=== PATIENT | male | born 1945 | race Caucasian/White ===

== ENCOUNTER 2019-07-14 06:58 | Day surgery (SDC) | payer OTHER, BC ==
[2019-07-02 10:24] VITALS: BMI 23.0
[2019-07-14] MEDS ORDERED: LIDOCAINE HCL 1%, 10 MG/ML (20ML VIAL) ONE (07:05)
[2019-07-14] MEDS ORDERED: MIDAZOLAM HCL 2 MG/2 ML SINGLE DOSE VIAL ONE (08:23)
[2019-07-14] MEDS ORDERED: PROPOFOL 20 ML ONE (08:23)
[2019-07-14] MEDS ORDERED: LIDOCAINE HCL 2% (50ML VIAL) INF ONE (08:30)
[2019-07-14 09:29] VITALS: BP 122/74; PULSE 60; TEMP 98
--- NOTE | 2019-07-14 10:31 | OP ---
DATE OF OPERATION: 07/14/2019 PREOPERATIVE DIAGNOSIS: Left index trigger finger. POSTOPERATIVE DIAGNOSIS: Left index trigger finger. OPERATIVE PROCEDURE: Left index trigger finger release. SURGEON: Jorge Hubbard MD ANESTHESIA: Local with sedation. COMPLICATIONS: None. ESTIMATED BLOOD LOSS: Minimal. INDICATIONS FOR THE PROCEDURE: The patient is a 74-year-old male with the above finding indicated for operative treatment. Risks, benefits and alternatives were discussed with the patient at length and proper informed consent was obtained. PROCEDURE: After proper identification of the patient and correct operative site, patient was brought to the operating room and placed on the table with bony prominences well-padded. Sedation was given by the anesthesiologist, local anesthesia was given. The left upper extremity was prepped and draped in the usual sterile fashion. A well-padded tourniquet was placed over the sterile prep. Esmarch bandage was used to exsanguinate the left upper extremity. The tourniquet was inflated to 250 mmHg. A longitudinal incision was made over the A1 eligio of the index finger. The incision was taken sharply through the skin. Blunt and sharp dissection was performed through the subcutaneous tissues. The A1 eligio was identified and divided longitudinally. The patient was asked to flex and extend his finger and no further triggering was noted. The wound was irrigated and repaired with 5-0 fast-absorbing plain gut suture. Sterile dressings were applied. Patient was brought to Recovery in stable condition. He tolerated the procedure well. JORGE HUBBARD M.D. [id number]
== END 2019-07-14 09:43 | disposition home or self-care (01) ==
LOC: FASU 06:58
PROVIDERS: ATTEND Orthopaedic Surgery Hand Surgery
PROC: 0LN80ZZ Release Left Hand Tendon, Open Approach (ICD-10-PCS; principal; 2019-07-14 08:36)
DX: M65.322 Trigger finger, left index finger (principal)

== ENCOUNTER 2022-09-18 06:34 | Day surgery (SDC) | payer OTHER, BC ==
[2022-09-10 09:40] VITALS: BMI 21.6
[2022-09-18 07:02] VITALS: RESP 18
[2022-09-18] MEDS ORDERED: BUPIVACAINE HCL/PF 0.25% (2.5MG/ML) 10 ML VIAL ONE (07:15)
[2022-09-18] MEDS ORDERED: LIDOCAINE HCL 2% (20ML MULTI-DOSE VIAL) ONE (07:16)
[2022-09-18] MEDS ORDERED: PROPOFOL 20 ML ONE (07:55)
[2022-09-18] MEDS ORDERED: MIDAZOLAM HCL 2 MG/2 ML SINGLE DOSE VIAL ONE (07:55)
[2022-09-18] MEDS ORDERED: oxyCODONE HCL 5 MG TABLET PO PRN (08:02)
[2022-09-18] MEDS ORDERED: ONDANSETRON 4 MG/2 ML VIAL IVPUSH PRN (08:02)
[2022-09-18] MEDS ORDERED: LACTATED RINGERS SOLUTION 1,000 ML IV SCH (08:15)
[2022-09-18] MEDS ORDERED: BUPIVACAINE HCL/PF 0.25% (2.5MG/ML) 10 ML VIAL IJ ONE (08:20)
[2022-09-18 08:52] VITALS: BP 125/74; TEMP 97.8
[2022-09-18 09:06] VITALS: PULSE 67
== END 2022-09-18 09:27 | disposition home or self-care (01) ==
LOC: FASU 06:34
PROVIDERS: ATTEND Orthopaedic Surgery Hand Surgery
PROC: 0LN80ZZ Release Left Hand Tendon, Open Approach (ICD-10-PCS; principal; 2022-09-18 08:25)
DX: M65.342 Trigger finger, left ring finger (principal)